=== PATIENT | female | born 1960 | race Caucasian/White ===

== ENCOUNTER 2024-09-03 13:44 | Outpatient (RCR) | payer OTHER, SELFPAY ==
[2024-09-03 14:30] VITALS: BP 109/49
[2024-09-03 15:00] VITALS: BP 83/48
[2024-09-03 15:05] VITALS: BP 88/52
[2024-09-03 15:10] VITALS: BP 96/55
[2024-09-03 15:15] VITALS: BP 96/54
== END 2024-09-06 09:05 | disposition home or self-care (01) ==
LOC: OID 13:44
PROVIDERS: ATTENDING PHYSICIAN Internal Medicine Hematology & Oncology; FAMILY PHYSICIAN Family Medicine
DX: E83.119 Hemochromatosis, unspecified (principal); D75.1 Secondary polycythemia; Z80.8 Family history of malignant neoplasm of other organs or systems
CPT/HCPCS: 99195